=== PATIENT | female | born 1990 | race Two or more races ===

== ENCOUNTER 2025-05-25 05:24 | Day surgery (SDC) | payer OTHER ==
[2025-05-20 15:46] LABS: INR 0.95
[2025-05-20 15:49] LABS: RH POSITIVE
[2025-05-25] MEDS ORDERED: CHLORHEXIDINE GLUCONATE 120 ML BOTTLE TOP ONE (09:00)
[2025-05-25] MEDS ORDERED: POVIDONE-IODINE 118 ML BOTT TOP ONE (09:00)
[2025-05-25] MEDS ORDERED: PROMETHAZINE HCL 25 MG/ML AMPUL IV PRN (09:30)
[2025-05-25] MEDS ORDERED: MORPHINE SULFATE 4 MG/ML VIAL IV PRN (09:30)
[2025-05-25] MEDS ORDERED: MORPHINE SULFATE 4 MG/ML VIAL IV ONE ×2 (10:10→10:40)
[2025-05-25] MEDS ORDERED: SUGAMMADEX SODIUM 200 MG/2 ML VIAL IV ONE (10:15)
== END 2025-05-25 12:20 | disposition home or self-care (01) ==
LOC: CIR.AMB 05:24
PROVIDERS: ATTEND Student in an Organized Health Care Education/Training Program
DX: Z30.2 Encounter for sterilization (principal)